=== PATIENT | male | born 1975 ===

== ENCOUNTER 2021-02-22 19:10 | Emergency (ER) | payer BC, SELFPAY ==
[2021-02-22 19:12] VITALS: BP 151/87; PULSE 69; RESP 18; TEMP 37; O2SAT 100; BMI 26.3
--- NOTE | 2021-02-22 19:16 | DI.RAD.S_ITS ---
PROCEDURE: XR KNEE LT 3V INDICATIONS: unable to flex or extend left knee without pain TECHNIQUE: 3 views of the knee were acquired. COMPARISON: None. FINDINGS: Bones: No fractures or dislocations. No suspicious bony lesions. Soft tissues: No joint effusion. No suspicious soft tissue calcifications. IMPRESSION: No acute osseous abnormality. Dictated by: Vin Bains M.D. on 02/22/2021 at 19:57 Approved by: Vin Bains M.D. on 02/22/2021 at 19:57
--- NOTE | 2021-02-22 22:35 | ED_ITS ---
HPI - Extremity Injury (Lower) General Chief Complaint: Extremity Injury, Lower Stated Complaint: left knee pain Time Seen by Provider: 02/22/21 22:34 Source: patient Mode of arrival: Wheelchair Limitations: no limitations History of Present Illness HPI Narrative: This is a 46-year-old male comes emergency department complaint of left knee pain. Patient was sitting on the stairs with his knees bent he was tying his right shoe lift when his left knee externally rotated and touched the base border the side of the wall and patient had significant severe onset of pain. He describes as being a little bit more of the lateral knee. He had most comfort being flexed with significant increase in pain with extension or increasing flexion. Patient states his symptoms were improving over time. He was able to ambulate. He noted while getting an x-ray he felt pop a little bit extra pain and since then his symptoms have pretty much resolved with some minor residual pain on the lateral knee. Patient has not any redness, warmth or changes. He did not appreciate any deformity or his patella being out of place. He has not any warmth, heat to the area. He has not felt like it is unstable. He did not feel any obvious pop clicks or other changes. 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 He denies any other medical issues. No prior surgeries. No allergies to medications. Related Data Home Medications Medication Instructions Recorded Confirmed No Known Home Medications 01/25/21 01/25/21 Allergies Allergy/AdvReac Type Severity Reaction Status Date / Time No Known Drug Allergies Allergy Verified 02/22/21 19:11 Review of Systems Review of Systems ROS Unobtainable: All systems reviewed & are unremarkable except as noted in HPI and below Patient History Social History Smoking Status: Former smoker Smoking Status: Former smoker alcohol intake frequency: 3 or more drinks per day Alcohol type: beer Substance Use Type: does not use Exam Narrative Exam Narrative: GENERAL: Alert and oriented x three, male in mild distress. HEENT: Head normocephalic, atraumatic, EOMI, pupils reactive, face symmetric, moist mucous membranes EXTREMITIES: Normal range of motion, no clubbing or edema. Neurovascularly intact. Nontender on exam. No joint laxity. No warmth, erythema or skin changes. No rash. Patella appears in place with no laxity. Patient has 5/5 muscle strength. NEUROLOGICAL: Cranial nerves II through XII grossly intact. Moving all extremities SKIN: Warm, dry, no petechiae, no rashes or lesions. Initial Vital Signs Initial Vital Signs: Vital Signs Temperature 98.6 F 02/22/21 19:12 Pulse Rate 69 02/22/21 19:12 Respiratory Rate 18 02/22/21 19:12 Blood Pressure 151/87 H 02/22/21 19:12 Pulse Oximetry 100 02/22/21 19:12 Course Orders Ordered: ED Orders 02/22/21 19:16 XR knee LT 3V Stat Vital Signs Vital signs: Vital Signs - 8 hr 02/22/21 23:01 Pulse Rate 51 L Blood Pressure 155/86 H Pulse Oximetry 100 MDM - Extremity Injury (Lower) Imaging Data Extremity x-ray #1: Radiologist's Impression: Kali Rushing??46??M??1975 ? Allergy/Adv: No Known Drug Allergies (More??) Close Knee X-Ray (Signed) Vin Bains - 02/22/21 [place] [address] XRay Report Signed Patient: Kali Rushing MR#: [id number] : 1975 Acct:[id number] Age/Sex: 46 / M Date of Service: 02/22/21 Loc: ED Accession Number: [id number] ?? Procedure: XR knee LT 3V Ordering Provider: Nellie Meyer D.O. PROCEDURE:? XR KNEE LT 3V ? INDICATIONS:? unable to flex or extend left knee without pain ? TECHNIQUE:? 3 views of the knee were acquired.? ? COMPARISON:? None. ? FINDINGS:? ? Bones:? No fractures or dislocations.? No suspicious bony lesions.? ? Soft tissues:? No joint effusion.? No suspicious soft tissue calcifications.? ? ? IMPRESSION:? No acute osseous abnormality. ? ? Dictated by: Vin Bains M.D. on 02/22/2021 at 19:57 ? ? Approved by: Vin Bains M.D. on 02/22/2021 at 19:57?? MDM Narrative Medical decision making narrative: 46-year-old male with left knee pain with minimal trauma. Unclear exact cause of symptoms. Does not seem likely as a patellar dislocation as patient did not appreciate any deformity or pop se nsation. Patient's exam is reassuring x-ray is negative. Discharge Plan Departure Patient Disposition: Home Clinical Impression: Left knee pain Instructions: DI for Leg Pain Activity Restrictions/Additional Instructions: If you have recurrent or frequent episodes it may be helpful to follow-up with orthopedic surgery and referral is included below. As your symptoms have resolved you can continue regular activities. I would increase her range of motion slowly. You may take ibuprofen up to 600 mg every 6 hours as needed. This may be helpful from an anti-inflammatory perspective as well. Return for fevers, redness or warmth, rapidly worsening swelling, significant recurrent severe pain, numbness, tingling or weakness or other new or concerning symptoms. Prescriptions: No Action No Known Home Medications RF: 0 Referrals: Brenda Balderrama PA-C [Primary Care Provider] - Allan Klein MD [Physician] -
[2021-02-22 23:01] VITALS: BP 155/86; PULSE 51; O2SAT 100
== END 2021-02-22 23:07 | disposition home or self-care (01) ==
PROVIDERS: Emergency Provider Emergency Medicine; PCP Physician Assistant
DX: M25.562 Pain in left knee (principal)
CPT/HCPCS: 73562; 99281; 99283

== ENCOUNTER → 2022-01-03 08:08 | Outpatient (CLI) | payer BC, SELFPAY ==
[2022-01-03 21:44] LABS: COVID-19 CEPHEID PCR (VTM/NP) POSITIVE (Negative)
== END ==
PROVIDERS: PCP Physician Assistant; Visit Provider Physician Assistant
DX: U07.1 COVID-19 (principal)
CPT/HCPCS: U0003; U0005

== ENCOUNTER → 2023-02-12 10:44 | Outpatient (CLI) | payer BC, SELFPAY ==
[2023-02-12 20:07] LABS: Add Manual Diff / Slide Review NO; Basophils Absolute Auto 100 /uL (0-100); Basophils Percent Auto 1.1 % (0-2); Eosinophils Absolute Auto 400 /uL (0-450); Eosinophils Percent Auto 5.8 % (2-4); Hematocrit 41.9 % (41-53); Hemoglobin 14.5 g/dL (13.5-17.5); Lymphocytes Absolute Auto 2700 /uL (1100-4500); Lymphocytes Percent Auto 41.1 % (25-40); Mean Corpuscular HGB Conc 34.6 % (30-36); Mean Corpuscular Hemoglobin 33.9 PG (26-34); Mean Corpuscular Volume 97.7 fL (80-100); Monocytes Absolute Auto 300 /uL (0-900); Monocytes Percent Auto 4.4 % (3-14); Neutrophils Absolute Auto 3200 /uL (1500-7000); Neutrophils Percent Auto 47.6 % (50-75); Platelet Count 217 X10^3/uL (150-400); Red Blood Cell Count 4.29 X10^6/uL (4.5-5.9); Red Cell Distribution Width 13.3 % (11.6-14.8); White Blood Cell Count 6.7 X10^3/uL (4.5-11.0)
[2023-02-12 20:14] LABS: Alanine Aminotransferase 23 IU/L (<50); Albumin 4.4 g/dL (3.5-5.0); Albumin Globulin Ratio 1.6 (1.0-2.8); Alkaline Phosphatase 39 U/L (38-126); Aspartate Aminotransferase 22 IU/L (17-59); Bilirubin Total 0.5 mg/dL (0.2-1.3); Blood Urea Nitrogen 15 mg/dL (9-20); Calcium 9.3 mg/dL (8.4-10.2); Carbon Dioxide 27 mmol/L (22-32); Chloride 104 mmol/L (98-107); Estimated Glomerular Filt Rate > 60 mL/min (>60); Globulin 2.7 g/dL (1.7-4.1); Glucose 94 mg/dL (70-100); HEMOLYSIS < 15 (0-50); Potassium 4.3 mmol/L (3.4-5.1); Sodium 139 mmol/L (137-145); Total Protein 7.1 g/dL (6.3-8.2)
== END ==
PROVIDERS: PCP Physician Assistant; Visit Provider Physician Assistant Medical
DX: Z01.818 Encounter for other preprocedural examination (principal)
CPT/HCPCS: 80053; 85025